=== PATIENT | female | born 1965 | race Hispanic/Latino ===

== ENCOUNTER 2024-02-22 21:18 | Emergency (ER) | payer OTHER ==
[2024-02-22] VITALS (7 sets, daily range): BP systolic 101–155; BP diastolic 56–69
[~2024-02-22] VITALS: Ht 154.9 cm; Wt 54.0 kg
[2024-02-22] MEDS ORDERED: cloNIDine HCL 0.1 MG/TAB PO ONE (21:30)
[2024-02-22] MEDS ORDERED: ROSUVASTATIN CAL5 MG PO (21:45)
[2024-02-22] MEDS ORDERED: TRIGLIDE160 MG PO (21:46)
[2024-02-22] MEDS ORDERED: METFORMIN HCL1000 MG PO (21:47)
[2024-02-22 21:53] LABS: BASO% 0.6 % (0-3); EOS% 2.2 % (0-8); HEMATOCRIT 34.1 % (37.0-47.0); HEMOGLOBIN 11.7 g/dl (12.0-16.0); IMMATURE GRANULOCYTES 0.3 % (0.0-5.0); LYMPH% 43.1 % (15-41); MEAN CELL VOLUME 84.6 fL CALC (80.0-100.0); MEAN CORPUSCULAR HGB CONC 34.3 g/dL CAL (32.0-36.0); MONO% 4.9 % (2-13); NEUT# 3.06 thou/uL (2.00-7.15); NEUT% 48.9 % (42-76); RED BLOOD COUNT 4.03 mill/uL (4.20-5.60); RED CELL DISTRI WIDTH 11.5 % (11.5-15.5)
[2024-02-22 21:53] LABS: URINE BILIRUBIN - DIPSTICK Negative (NEGATIVE); URINE BLOOD DIPSTICK Negative (NEGATIVE); URINE COLOR Yellow; URINE GLUCOSE - DIPSTICK 500 mg/dL (NEGATIVE); URINE KETONE Negative (NEGATIVE); URINE LEUK ESTERASE Negative (NEGATIVE); URINE NITRITE - DIPSTICK Negative (Negative); URINE PROTEIN - DIPSTICK Negative (NEG-TRACE); URINE UROBILINOGEN - DIPSTICK 0.2 E.U./dL (0.2)
[2024-02-22 22:05] LABS: ALBUMIN 4.4 g/dL (3.2-5.0); CREATININE 1.2 mg/dL (0.5-1.0); POTASSIUM 3.9 mmol/l (3.5-5.1); TOTAL PROTEIN 7.3 g/dL (6.3-8.2)
[2024-02-22 22:17] LABS: BILIRUBIN, TOTAL 0.3 mg/dL (0.02-1.3)
[2024-02-22] MEDS ORDERED: INSULIN REGULAR (HUMAN) 100 UNIT/ML INJ SC ONE (22:40)
[2024-02-22] MEDS ORDERED: HYZAAR1 TA2 PO (23:09)
== END 2024-02-22 23:30 | disposition home or self-care (01) | DRG 305 ==
LOC: ED 21:18
PROVIDERS: Family Medicine
DX: I10 Essential (primary) hypertension (principal); E11.65 Type 2 diabetes mellitus with hyperglycemia; E78.5 Hyperlipidemia, unspecified; Z79.84 Long term (current) use of oral hypoglycemic drugs; Z79.85 Long-term (current) use of injectable non-insulin antidiabetic drugs